=== PATIENT | female | born 1980 | race Asian ===

== ENCOUNTER 2017-11-01 08:30 | Inpatient (IN) | payer SELFPAY ==
[~2017-11-01] VITALS: Ht 168 cm; Wt 65.8 kg
[2017-11-01] MEDS ORDERED: OXYTOCIN/NORMAL SALINE 1,000 ML IV SCH ×2 (09:01→11:12)
[2017-11-01] MEDS ORDERED: LR 1,000 ML IV ONE (09:01)
[2017-11-01] MEDS ORDERED: LR 1,000 ML IV SCH (09:01)
[2017-11-01] MEDS ORDERED: TERBUTALINE SULFATE 1 MG/ML VIAL SUBCUT ONE (09:15)
[2017-11-01] MEDS ORDERED: NALBUPHINE HCL 10 MG/ML AMP IVP PRN ×2 (09:15→15:45)
[2017-11-01] MEDS ORDERED: METHYLERGONOVINE MALEATE 0.2 MG/ML AMP IM ONE (09:15)
[2017-11-01 10:07] LABS: BASOPHILS % (AUTO) 0.4 % (0.0-2.0); EOSINOPHILS # (AUTO) 0.1 K/uL (0.0-0.4); EOSINOPHILS % (AUTO) 1.5 % (0.0-4.0); HEMOGLOBIN 13.2 g/dL (12.0-16.0); LYMPHOCYTES # (AUTO) 2.1 K/uL (1.0-5.5); LYMPHOCYTES % (AUTO) 30.7 % (20.5-51.5); MEAN CORPUSCULAR HEMOGLOBIN 32 pg (27-31); MEAN CORPUSCULAR HGB CONC 34 % (32-36); MEAN CORPUSCULAR VOLUME 96 fL (79.0-98.0); MONOCYTES # (AUTO) 0.6 K/uL (0.0-1.0); MONOCYTES % (AUTO) 8.9 % (1.7-9.3); NEUTROPHILS % (AUTO) 58.5 % (40.0-70.0); PLATELET COUNT (AUTO) 144 K/uL (130-430); RED BLOOD CELL COUNT(AUTO) 4.06 MIL/uL (4.2-6.2); RED CELL DISTRIBUTION WIDTH 12.5 % (9.0-15.0); WHITE BLOOD COUNT (AUTO) 6.8 K/uL (4.8-10.8)
[2017-11-01] MEDS ORDERED: OXYTOCIN/NORMAL SALINE 1,000 ML IV ONE (11:12)
[2017-11-01] MEDS ORDERED: HYDROcodone/ACETAMIN 5-325 MG TAB (NORCO/ VICODIN) PO PRN ×2 (11:15)
[2017-11-01] MEDS ORDERED: HYDROCORTISONE 0.5%, 28.35 GM TOPICAL CREAM TP PRN (11:15)
[2017-11-01] MEDS ORDERED: MEASLES,MUMPS&RUBELLA VACC/PF 12500 UNIT/0.5 ML VIAL SUBQ PRN (11:15)
[2017-11-01] MEDS ORDERED: METHYLERGONOVINE MALEATE 0.2 MG TABLET PO PRN (11:15)
[2017-11-01] MEDS ORDERED: ANUSOL 1 EA SUPP.RECT (PREPARATION H) RC PRN (11:15)
[2017-11-01] MEDS ORDERED: RHO(D) IMMUNE GLOBULIN/MALTOSE 1500 UNITS/1.3 ML (WINHRO) IM PRN (11:15)
[2017-11-01] MEDS ORDERED: GLYCERIN/WITCH HAZEL (TUCKS PADS) TP PRN (11:15)
[2017-11-01] MEDS ORDERED: LANOLIN 7 GM OINT. TP PRN (11:15)
[2017-11-01] MEDS ORDERED: SENNOSIDES/DOCUSATE SODIUM 1 TAB TABLET(SENOKOT-S) PO PRN (11:15)
[2017-11-01] MEDS ORDERED: DERMOPLAST SPRAY TP PRN (11:15)
[2017-11-01] MEDS ORDERED: TEMAZEPAM 15 MG CAPSULE PO PRN (11:15)
[2017-11-01] MEDS ORDERED: ACETAMINOPHEN 325 MG TABLET PO PRN (11:15)
[2017-11-01] MEDS: DOCUSATE SODIUM 100 MG CAPSULE PO PRN (11:51)
[2017-11-01] MEDS: IBUPROFEN 600 MG TABLET PO SCH ×2 (11:51→22:55)
[2017-11-01] MEDS ORDERED: MORPHINE SULFATE 10 MG/ML VIAL ONE (16:12)
[2017-11-01] MEDS ORDERED: MORPHINE SULFATE 10 MG/ML VIAL IVP ONE ×2 (16:15)
[2017-11-01] MEDS ORDERED: CEFTRIAXONE SOD 2 GM/ D5W 100 ML IV ONE ×2 (16:15)
[2017-11-01 16:29] LABS: HEMATOCRIT 32.8 % (36-48); HEMOGLOBIN 10.9 g/dL (12.0-16.0)
[2017-11-01 18:21] VITALS: BP_SYST 137
[2017-11-02] MEDS: IBUPROFEN 600 MG TABLET PO SCH ×4 (05:55→23:35)
[2017-11-02 05:58] LABS: HEMATOCRIT 30.3 % (36-48); HEMOGLOBIN 10.1 g/dL (12.0-16.0)
[2017-11-03] MEDS: IBUPROFEN 600 MG TABLET PO SCH (05:45)
[2017-11-03] MEDS: DOCUSATE SODIUM 100 MG CAPSULE PO PRN (05:52)
== END 2017-11-03 13:35 | disposition home or self-care (01) | DRG 774 ==
LOC: SPU 08:30
PROVIDERS: ADMIT Obstetrics & Gynecology; ATTEND Obstetrics & Gynecology
PROC: 10E0XZZ Delivery of Products of Conception, External Approach (ICD-10-PCS; principal; 2017-11-01)
PROC: 30233N1 Transfusion of Nonautologous Red Blood Cells into Peripheral Vein, Percutaneous Approach (ICD-10-PCS; 2017-11-01)
DX: O69.81X0 Labor and delivery complicated by cord around neck, without compression, not applicable or unspecified (principal); O72.1 Other immediate postpartum hemorrhage; O09.523 Supervision of elderly multigravida, third trimester; Z37.0 Single live birth; Z68.39 Body mass index [BMI] 39.0-39.9, adult
CPT/HCPCS: 36415; 81002-TC; 85018-TC; 85025; 86592; 86886; 86900; 86901; 86920; 94760; J0696; J2210; J2270; J2300; J2590; J7060; P9021